=== PATIENT | female | born 1990 | race Caucasian/White ===

== ENCOUNTER 2023-05-17 19:53 | Emergency (ER) | payer OTHER, SELFPAY ==
[2023-05-17 20:06] VITALS: BP 151/97
[2023-05-17 20:20] LABS: % Basophils 0.2 % (0-2); % Immature Granulocytes 0.4 % (0-0.5); % Lymphocytes 12.7 % (20.5-51.1); % Monocytes 2.7 % (1.7-9.3); Absolute Immature Granulocytes 0.1 10^3/uL (0-0.05); Absolute Lymphocytes 1.8 10^3/uL (1.2-3.4); Absolute Monocytes 0.4 10^3/uL (0.1-0.6); Absolute Neutrophils 11.7 10^3/uL (1.4-6.5); Hematocrit 44.6 % (37.0-47.0); Hemoglobin 15.1 g/dL (12.0-16.0); Mean Corp Hgb Conc. 33.9 g/dL (33.0-37.0); Mean Corpuscular Hgb 27.5 pg (27.0-31.0); Mean Corpuscular Volume 81.2 fL (81.0-99.0); Mean Platelet Volume 9.6 fL (7.4-10.4); Nucleated Red Blood Cells % 0 %; Platelet Count 319 10^3/uL (130-400); Red Blood Cell Count 5.49 10^6/uL (4.20-5.40); Red Cell Dist. Width 12.8 % (11.5-14.5); White Blood Cell Count 13.9 10^3/uL (4.8-10.8)
[2023-05-17 20:39] LABS: ALT (SGPT) 26 U/L (0-35); AST (SGOT) 28 U/L (14-36); Albumin 4.8 g/dl (3.5-5.0); Alkaline Phosphatase 64 U/L (38-126); Blood Urea Nitrogen 13 mg/dl (7-17); Calcium 9.9 mg/dl (8.4-10.2); Carbon Dioxide 26 mmol/L (22-30); Chloride 105 mmol/L (98-107); Glucose 148 mg/dl (70-99); Potassium 4.4 mmol/L (3.5-5.1); Sodium 138 mmol/L (135-145); Total Bilirubin 0.5 mg/dl (0.2-1.3); eGFR > 60.00
[2023-05-17 20:44] LABS: Troponin I < 0.012 ng/ml
[2023-05-17 22:26] VITALS: BP 123/66
--- NOTE | 2023-05-17 22:59 | ED.GENMED ---
History of Present Illness
General
Chief Complaint: Chest Pain
Source: patient
Exam Limitations: none
Time Seen by Provider: 05/17/23 22:37
Nursing documentation reviewed up to this point in time: agreed with
Travel History
Have you had any contact with someone who has COVID-19?: No
Do you have any symptoms of coronavirus? Fever > 100 degrees, chills, cough, shortness of breath, sore throat, loss of taste or smell, muscle aches, or headache?: No
History of Present Illness
History of Present Illness:
This is a 32-year-old overweight female who has history of asthma, currently maintained on Singulair, Claritin, Nasonex and as needed albuterol. She complains of several day history of intermittent palpitations feeling that her heart is beating
rapidly accompanied with some sinus congestion, intermittent cough. She has not noticed a fever but symptoms worsened today with intermittent lightheadedness, dizziness and left upper chest pain radiating to left shoulder and left arm since late
afternoon. She admits to feeling anxious, somewhat panicked with no prior history of anxiety, panic disorder.
She denies risk of , last menstrual period normal and on time 1 week ago.
No recent travel other than [address] to and from [place] recently. She denies leg pain or swelling.
She is a non-smoker.
No close contacts with similar symptoms.
She did take a dose of prednisone earlier today, leftover from previous prescription she thought maybe her asthma was acting up.
Past History
Past History
ED Past Medical History: Asthma, Hypercholesterolemia, Psychiatric (Depression) and Other (Morbid obesity, UTI, seasonal allergies)
ED Past Surgical History: Other ([place] teeth)
Social History
Tobacco: Non-smoker
Alcohol: Occasional
Personal:
Living: with family
Employment: Employed
Family History
Family History: Other (Noncontributory)
Phy Exam
Physical Exam
Physical Exam:
GENERAL: 32-year-old woman, overweight, appears her stated age, bright and alert, very minimally apprehensive but easily communicative. Very mild resting tachypnea is noted, moderate nasal congestion is noted. Able to speak in full sentences.
is accompanying. Borderline low-grade fever noted in triage at 99.3, currently afebrile upon recheck.
EYE: . anicteric
NECK: Supple, nontender, no meningismus, no significant adenopathy. No JVD.
ENT: posterior pharynx is has no injection, mild clear postnasal drip, oral mucosa is moist. TMs without injection but clear middle ear effusion noted bilaterally, nares have moderately boggy pale blue turbinates with mild clear rhinorrhea.
CARDIAC: Regular rhythm, mildly tachycardic. no murmur.
LUNGS: Very minimal resting tachypnea, scattered end expiratory wheezing with forced expiration only otherwise clear to auscultation.
ABDOMEN: Rotund, soft, nondistended, without focal tenderness, no r/g, no cvat. normoactive BS.
NEUROLOGICAL: Alert and oriented x3, no focal neuro deficits.
SKIN: Warm and dry, normal color, skin intact. No rash.
MUSCULOSKELETAL: No C/C/E. peripheral pulses are full and equal b/l. No palpable tenderness.
PSYCH: Minimally apprehensive, cooperative, easily communicative.
Scores
Heart Score for Chest Pain Patients
STEMI patient?: No
History: Slightly or Non-Suspicious
ECG: Normal
Age: </= 45 years
Risk Factors: No Risk Factors
Troponin: </= Normal Limit
Heart Score for Chest Pain Patients: 0
Heart Score Risk: 2.5% MACE over next 6 weeks
PE Wells Score
Symptoms of DVT: No
No alternative diagnosis better explains the illness: No
Tachycardia with pulse > 100: Yes
Immobilization (>=3 days) or surgery within previous 4 weeks: No
Prior history of DVT or pulmonary embolism: No
Presence of hemoptysis: No
Presence of malignancy: No
Pulmonary Embolism Risk Score: 1.5
Probability of PE: Pt is low risk
PERC Rule Criteria
Age <50 years: Yes
HR <100 bpm: No
Room air oxygen sat >94%: Yes
History of DVT or PE: No
Recent trauma or surgery: No
Hemoptysis: No
Exogenous estrogen: No
Clinical signs suggestive of DVT: No
: No
Considered low risk for PE: Yes
PERC Score: 1
PE can be excluded by PERC: No
Course
Orders/Labs/Results
Orders:
Orders
05/17/23 19:55
EKG [Electrocardiogram (*1)] Urgent
Reason for Study: Tachycardia
EKG- Treatment ONCE
05/17/23 20:15
Complete Blood Count/With Diff Urgent
Comprehensive Metabolic Panel Urgent
HCG, Serum Qualitative Screen Urgent
Comment: ADD ON
TSH Reflex To Free T4 Urgent
Comment: ADD ON
Troponin I Urgent
05/17/23 22:57
Add On- LAB Urgent
Tests Added?: qual serum HCG; TSH reflex to free T-4
05/17/23 22:58
0.9% Sodium Chloride 1000 ml [Nss] 1,000 ml IV BOLUS
Ipratropium/Albuterol Sulfate [Duoneb] 3 ml INH R NOW STA
05/17/23 23:43
D-Dimer Urgent
Urinalysis Reflex To Culture Urgent
Date Specimen was Collected: 05/17/23
Time Specimen was Collected: 23:28
Urine Microscopic Reflex Cult Urgent
Urine Culture Urgent
MARISELA Source: U
Specimen Description:
Date Specimen was Collected: 05/17/23
Time Specimen was Collected: 23:28
05/18/23 00:22
CR Chest - 2 Views Urgent
Comment:
Reason For Exam: cough, SOB, left upper CP
Abnormal Lab Results
05/17/23 05/17/23
20:15 23:43
WBC 13.9 H 10^3/uL
(4.8-10.8)
RBC 5.49 H 10^6/uL
(4.20-5.40)
Abs Immat Gran (auto) 0.1 H 10^3/uL
(0-0.05)
Absolute Neuts (auto) 11.7 H 10^3/uL
(1.4-6.5)
Neutrophils % 84.0 H %
(42.2-75.2)
Lymphocytes % 12.7 L %
(20.5-51.1)
Glucose 148 H mg/dl
(70-99)
Leukocyte Esterase Rfl 2+ A
(Negative)
Urine RBC 3-6 A /HPF
(0-2)
Urine WBC (Reflex) 30-40 A /HPF
(0-5)
Urine Bacteria (Reflex) Many A
(Negative)
05/17/23 20:15
05/17/23 20:15
Vital Signs
Initial and Last Documented VS:
Initial Vital Signs
Temp Pulse Resp BP Pulse Ox
99.3 F 115 26 151/97 98
05/17/23 20:06 05/17/23 20:06 05/17/23 20:06 05/17/23 20:06 05/17/23 20:06
Last Documented Vital Signs
Temp Pulse Resp BP Pulse Ox
98.4 F 114 21 138/86 93
05/18/23 01:19 05/18/23 00:15 05/18/23 00:15 05/18/23 00:00 05/18/23 01:30
MDM/Problems Addressed
Differential Diagnosis Includes:
Concern for exacerbation of asthma, seasonal allergy exacerbation, with sinus tachycardia, left upper chest pain, although no definitive risk factors for PE must consider this as an entity.
Other consideration is thyroid disorder, occult pneumonia.
Will trial DuoNeb nebulizer, IV fluids. Will check D-dimer and thyroid function.
ACS is less likely. EKG although shows sinus tachycardia is otherwise unremarkable. Troponin is negative.
Monitor shows normal sinus rhythm to sinus tachycardia.
Patient also notes intermittent lower abdominal discomfort, abdomen is soft and nontender. No UTI symptoms but has had previous UTIs in the past thus will check urinalysis. Will also check hCG for completeness sake.
If D-dimer is negative will check chest x-ray; if positive, will check CT of the chest/PE study.
Labs show mildly elevated white blood cell count of 13.9, mildly elevated random glucose of 148. Patient did take a dose of prednisone earlier today which could certainly account for these findings. Patient reports no prior history of impaired
fasting glucose and previous random blood sugars have been essentially within normal limits.
Chronic conditions affecting care: Asthma and Other (Seasonal allergies)
*Radiology
Radiology exam reviewed: preliminary read by ED provider (Chest x-ray is unremarkable, clear lung gomez, normal heart size.)
*Pulse Oximetry
Patient hypoxic: no
*EKG
Interpreted by ED Provider?: Yes
Comparison EKG: no changes (Unchanged from previous October 2022 save her heart rate has increased from 77 to now 110)
Rate: tachycardiac
Rhythm: sinus
[place]: normal axis
Interval: normal interval
QRS Pattern: normal QRS
Ischemia: no ischemia
*Hot [employer]ter Interpretation
Rate: tachycardiac
Interpretation: abnormal
Rhythm: sinus (Normal sinus rhythm in the 90s to mild sinus tachycardia)
*Critical Care Note
Total Time (30-74mins, 75-104mins- exclusive of procedures): Not Applicable
Update Note
Update Note:
Patient feeling improved after nebulizer treatment and IV fluids. Sinus tachycardia has resolved.
Anxiety has resolved as well.
D-dimer is negative. TSH is normal.
Urinalysis is a contaminated specimen with greater than 30 squamous epithelial cells. It does show many bacteria, 30-40 WBCs but a contaminated specimen and as patient has not had her usual UTI symptoms we will hold off on antibiotic and await
urine culture.
Chest x-ray is unremarkable, clear lung gomez.
Patient was concerned for potentially aspirating a small piece of fingernail last week and has been feeling some irritation left lower throat/neck region. She was concern for possible 'aspiration' of this piece of nail. Lengthy discussion that if
she was to aspirate it would cause an immediate cough and most likely enter the right mainstem bronchus to the right lower lobe where she has not had irritation. The fact that she is felt some irritation anterior lower neck region likely local
irritation of her esophagus but she has had nothing to suggest esophageal obstruction nor perforation, swallowing well without difficulty nor pain.
History and exam most consistent with seasonal allergic rhinitis which I suspect is causing an exacerbation of asthma. Will treat with a tapering dose of prednisone and recommend she resume twice daily Symbicort. Continue loratadine, Nasonex as
well as Singulair.
She was concerned about anxiety and has been somewhat stressed recently. I suspect her current anxiety is exacerbated by current asthma exacerbation and recommend we get her asthma under control and otherwise follow-up with her PCP.
Return precautions discussed.
ED Attending Note
-
Portions of this chart may have been created with voice recognition software.� Occasional wrong word or��sound alike� substitutions may have occurred due to the inherent limitations of voice recognition software.
Discharge Plan
Departure
Patient Disposition: Home (Routine Discharge)
Date of Disposition: 05/18/23
Time of Disposition: 01:56
Patient with high blood pressure during this ER visit?: No
Condition: Good
Discharge Problem:
Acute asthma exacerbation, Allergic rhinitis, Acute serous otitis media of both ears, Nonspecific chest pain, Anxiety
Instructions: Seasonal Allergies (DC), Asthma, Adult (DC), Anxiety, Adult (DC), Chest Pain PCP Follow Up
Prescriptions:
New
budesonide-formoterol [Symbicort] 160-4.5 mcg/actuation HFA aerosol inhaler
1 inh inhalation BID Qty: 10.2 0RF
prednisone 10 mg Tablet
See Rx Instructions .ROUTE .COMPLEX Qty: 30 0RF
Rx Instructions:
Take By Mouth:
40 mg daily x3 days, 30 mg daily x3 days,
20 mg daily x3 days, 10 mg daily x3 days.
No Action
mometasone [Nasonex] 17 GM spray,non-aerosol
17 gm NS DAILY
budesonide-formoterol [Symbicort] 1 PUFF HFA aerosol inhaler
2 puff inhalation R BID
clindamycin HCl 150 MG capsule
150 mg PO QID Qty: 24 0RF
montelukast 10 MG tablet
10 mg PO HS
azelastine [Optivar] 0.05 % drops
1 drp BOTH EYES PRN PRN (Reason: allergy eyes)
loratadine 10 MG tablet
10 mg PO DAILY Qty: 14 0RF
famotidine 20 MG tablet
20 mg PO BID Qty: 30 0RF
Referrals:
Michelle Paris PA-C [Family Provider] - Call in 1-3 days for appt
Interventions
Interventions:
*Risk Screen - Suicide Last Done: 05/17/23 20:05
*General Assessment Last Done: 05/17/23 20:03
*Neglect/Abuse Screening Last Done: 05/17/23 20:03
ED- Fall Risk Assessment Last Done: 05/17/23 22:29
*ED COVID-19 Vaccine History Last Done: 05/17/23 22:08
ED- Cardiac Assessment Last Done: 05/18/23 00:21
[2023-05-17 23:00] VITALS: BP 135/80
[2023-05-17 23:29] LABS: HCG, Serum Qualitative Screen Negative
[2023-05-17] MEDS: NSS 1000 IV (23:49)
[2023-05-17] MEDS: DUONEB 3 ML INH (23:49)
[2023-05-17 23:57] LABS: Urine Albumin Negative (Neg - Trace); Urine Bilirubin Negative (Negative); Urine Character Slightly Cloudy (Clear); Urine Color Yellow; Urine Glucose Negative (Negative); Urine Ketone Negative (Negative); Urine Leukocyte 2+ (Negative); Urine Nitrite Negative (Negative); Urine Occult Blood Negative (Negative); Urine Specific Gravity 1.015 (<1.030); Urine Urobilinogen Negative (Neg - 1+)
[2023-05-18] VITALS: BP 138/86
[2023-05-18 00:16] LABS: TSH Reflex To Free T4 0.82 uIU/ml (0.47-4.68)
[2023-05-18 00:18] LABS: D-Dimer < 0.27 ug/mlFEU (0.00-0.50)
[2023-05-18 01:21] LABS: Urine Bacteria Many (Negative); Urine Calcium Oxalate Crystals Seen; Urine Squamous Cell >30 /LPF (Few); Urine White Cell 30-40 /HPF (0-5)
== END 2023-05-18 02:15 | disposition home or self-care (01) ==
LOC: EMR 19:53
PROVIDERS: Emergency Medicine; EMERGENCY PHYSICIAN Emergency Medicine; FAMILY PHYSICIAN Physician Assistant Medical
DX: J45.901 Unspecified asthma with (acute) exacerbation (principal); H65.03 Acute serous otitis media, bilateral; R07.9 Chest pain, unspecified; F41.9 Anxiety disorder, unspecified
CPT/HCPCS: 99285; 96360; 94640; 71046; 80053; 81003; 81015; 84443; 84484; 84703; 85025; 85379; 87086; 93005

== ENCOUNTER 2023-05-21 09:03 | Emergency (ER) | payer OTHER, SELFPAY ==
[2023-05-21] VITALS (7 sets, daily range): BP systolic 132–146; BP diastolic 71–94; BMI 41.8
--- NOTE | 2023-05-21 09:28 | ED.GENMED ---
History of Present Illness
General
Chief Complaint: Abdominal Pain
Source: patient
Exam Limitations: none
Time Seen by Provider: 05/21/23 09:18
Travel History
Have you had any contact with someone who has COVID-19?: No
Do you have any symptoms of coronavirus? Fever > 100 degrees, chills, cough, shortness of breath, sore throat, loss of taste or smell, muscle aches, or headache?: No
History of Present Illness
History of Present Illness:
See MDM
Past History
Past History
ED Past Medical History: Asthma, Hypercholesterolemia, Psychiatric (Depression) and Other (Morbid obesity, UTI, seasonal allergies)
ED Past Surgical History: Other ([place] teeth)
Social History
Tobacco: Non-smoker
Alcohol: Occasional
Personal:
Living: with family
Employment: Employed
Family History
Family History: Other (Noncontributory)
Phy Exam
Physical Exam
Physical Exam:
See MDM
Course
Orders/Labs/Results
Orders:
Orders
05/21/23 09:26
CT Abd/pelvis W Iv Cont Urgent
Comment:
Reason For Exam: Suprapubic and RLQ pain. Recent UTI
0.9% Sodium Chloride 1000 ml [Nss] 1,000 ml IV BOLUS
Ketorolac [Toradol] 30 mg IV NOW STA
Ondansetron Injectable [Zofran] 4 mg IV NOW STA
05/21/23 09:58
Complete Blood Count/With Diff Urgent
Comprehensive Metabolic Panel Urgent
HCG, Serum Qualitative Screen Urgent
Comment: ADD ON
Lipase Urgent
05/21/23 10:02
Urinalysis Reflex To Culture Urgent
Date Specimen was Collected: 05/21/23
Time Specimen was Collected: 09:59
Urine Microscopic Reflex Cult Urgent
Urine Culture Urgent
MARISELA Source: U
Specimen Description:
Date Specimen was Collected: 05/21/23
Time Specimen was Collected: 09:59
05/21/23 10:32
Add On- LAB Urgent
Tests Added?: Beta HCG qualitative
05/21/23 11:45
Electrocardiogram (*1) Urgent
Reason for Study: Chest Pain
EKG- Treatment ONCE
Lorazepam [Ativan] 0.5 mg IV NOW STA
Abnormal Lab Results
05/21/23 05/21/23
09:58 10:02
MCV 80.1 L fL
(81.0-99.0)
Leukocyte Esterase Rfl 2+ A
(Negative)
Urine RBC 3-6 A /HPF
(0-2)
Urine Bacteria (Reflex) Few A
(Negative)
05/21/23 09:58
05/21/23 09:58
Vital Signs
Initial and Last Documented VS:
Initial Vital Signs
Temp Pulse Resp BP Pulse Ox
98.1 F 83 18 142/94 98
05/21/23 09:06 05/21/23 09:06 05/21/23 09:06 05/21/23 09:06 05/21/23 09:06
Last Documented Vital Signs
Temp Pulse Resp BP Pulse Ox
98.7 F 94 18 146/81 99
05/21/23 11:45 05/21/23 11:45 05/21/23 11:45 05/21/23 11:45 05/21/23 11:45
MDM/Problems Addressed
Differential Diagnosis Includes:
HPI and MDM Narrative:
32-year-old female presenting with increased abdominal bloating and increased urinary frequency. Patient states she was recently placed on doxycycline for UTI. Patient is concerned something else may be going on. She was recently seen in the
emergency department for asthma exacerbation. She stopped her steroids a few days ago. Patient is starting to feel anxious and is unsure if this is anxiety related or something worse.
Given her issues, will repeat urinalysis. Given the abdominal tenderness, will obtain CT
Physical exam
General: Well appearing and non-toxic
HEENT: protecting airway. Dry mucous membranes
Neck: appears supple
CV: No evidence of cyanosis
Resp: No accessory muscle use
Abd: Non-distended. Suprapubic and right lower quadrant tenderness
Extremities: No deformities
Neuro: alert
Psych: Normal affect
Skin: Intact
Problems Addressed including Acute and Chronic Conditions affecting care:
1. Abdominal pain
Acuity: acute
Prognosis: stable
Details: Given location of pain, will obtain CT. Patient given IV Toradol
2. Dehydration
Acuity: acute
Prognosis: stable
Details: Will give IV fluid
CT negative for acute pathology. Discussed follow-up with PCP
Updates
Differential Diagnosis (but not limited to): Appendicitis, cystitis, ovarian cyst
Testing considered: Pelvic ultrasound
Drug therapy (if applicable): OTC meds, please see d/c instruction regarding Rx drugs
Amount and/or Complexity of Data Reviewed
Clinical info obtained from: Patient
External data reviewed: Recent evaluation for asthma exacerbation. Patient states she is no longer short of breath or wheezing
Labs I independently reviewed (but not limited to): White blood cell count normal
Radiology: The CT scan was personally and independently reviewed. In addition, official CT report reviewed.
Pulse Ox: not hypoxic
EKG independently reviewed: Sinus rhythm, normal axis, no STEMI
[place]: N/A
Critical Care: N/A
Risk of Complication:
Social Determinants of health: Good social support
Discussed with other providers: N/A
Escalation of Care includes Admit/Obs: After being observed in the Emergency Department, pt stable for discharge.
Occasional wrong word or 'sound a like' substitutions may have occurred due to the inherent limitations of voice recognition software. Read the chart carefully and recognize, using context, where substitutions have occurred.
*Critical Care Note
Total Time (30-74mins, 75-104mins- exclusive of procedures): Not Applicable
ED Attending Note
-
Portions of this chart may have been created with voice recognition software.� Occasional wrong word or��sound alike� substitutions may have occurred due to the inherent limitations of voice recognition software.
Discharge Plan
Departure
Patient Disposition: Home (Routine Discharge)
Date of Disposition: 05/21/23
Time of Disposition: 13:29
Patient with high blood pressure during this ER visit?: Yes
Discharge Problem:
Abdominal pain
Instructions: Abdominal Pain, BLOOD PRESSURE
Prescriptions:
No Action
mometasone [Nasonex] 17 GM spray,non-aerosol
17 gm NS DAILY
budesonide-formoterol [Symbicort] 1 PUFF HFA aerosol inhaler
2 puff inhalation R BID
clindamycin HCl 150 MG capsule
150 mg PO QID Qty: 24 0RF
montelukast 10 MG tablet
10 mg PO HS
azelastine [Optivar] 0.05 % drops
1 drp BOTH EYES PRN PRN (Reason: allergy eyes)
loratadine 10 MG tablet
10 mg PO DAILY Qty: 14 0RF
famotidine 20 MG tablet
20 mg PO BID Qty: 30 0RF
budesonide-formoterol [Symbicort] 160-4.5 mcg/actuation HFA aerosol inhaler
1 inh inhalation BID Qty: 10.2 0RF
prednisone 10 mg Tablet
See Rx Instructions .ROUTE .COMPLEX Qty: 30 0RF
Rx Instructions:
Take By Mouth:
40 mg daily x3 days, 30 mg daily x3 days,
20 mg daily x3 days, 10 mg daily x3 days.
Referrals:
Hansbarger,Michelle A., PA-C [Family Provider] -
Activity Restrictions/Additional Instructions:
Please return for any worsening symptoms.
You may return at any time if you have further concerns.
Please follow up with your doctor at the first available appointment, preferably this week.
Thank you for choosing [facility].
Interventions
Interventions:
*Risk Screen - Suicide Last Done: 05/21/23 09:48
*General Assessment Last Done: 05/21/23 09:06
*Neglect/Abuse Screening Last Done: 05/21/23 09:48
ED- Fall Risk Assessment Last Done: 05/21/23 09:49
*ED COVID-19 Vaccine History Last Done: 05/21/23 09:06
QF-Zlnssd-Bfankagrlo Assessment Last Done: 05/21/23 09:49
[2023-05-21] MEDS: NSS 1000 IV (09:42)
[2023-05-21] MEDS: TORADOL 30 MG IV (09:44)
[2023-05-21] MEDS: ZOFRAN 4 MG IV (09:44)
[2023-05-21 10:11] LABS: % Basophils 0.5 % (0-2); % Eosinophils 1.2 % (0-6); % Immature Granulocytes 0.4 % (0-0.5); % Lymphocytes 32.9 % (20.5-51.1); % Monocytes 6.5 % (1.7-9.3); % Neutrophils 58.5 % (42.2-75.2); Absolute Eosinophils 0.1 10^3/uL (0-0.7); Absolute Lymphocytes 2.4 10^3/uL (1.2-3.4); Absolute Monocytes 0.5 10^3/uL (0.1-0.6); Absolute Neutrophils 4.3 10^3/uL (1.4-6.5); Hematocrit 40.3 % (37.0-47.0); Hemoglobin 13.9 g/dL (12.0-16.0); Mean Corp Hgb Conc. 34.5 g/dL (33.0-37.0); Mean Corpuscular Hgb 27.6 pg (27.0-31.0); Mean Corpuscular Volume 80.1 fL (81.0-99.0); Mean Platelet Volume 9.9 fL (7.4-10.4); Nucleated Red Blood Cells % 0 %; Platelet Count 250 10^3/uL (130-400); Red Blood Cell Count 5.03 10^6/uL (4.20-5.40); Red Cell Dist. Width 12.9 % (11.5-14.5); White Blood Cell Count 7.4 10^3/uL (4.8-10.8)
[2023-05-21 10:13] LABS: Urine Albumin Negative (Neg - Trace); Urine Bilirubin Negative (Negative); Urine Character Slightly Cloudy (Clear); Urine Color Yellow; Urine Glucose Negative (Negative); Urine Ketone Negative (Negative); Urine Leukocyte 2+ (Negative); Urine Nitrite Negative (Negative); Urine Occult Blood Negative (Negative); Urine Urobilinogen Negative (Neg - 1+)
[2023-05-21 10:24] LABS: ALT (SGPT) 21 U/L (0-35); AST (SGOT) 22 U/L (14-36); Albumin 4.1 g/dl (3.5-5.0); Alkaline Phosphatase 52 U/L (38-126); Blood Urea Nitrogen 12 mg/dl (7-17); Calcium 9.1 mg/dl (8.4-10.2); Carbon Dioxide 26 mmol/L (22-30); Chloride 107 mmol/L (98-107); Estimated Creatinine Clearance > 125 ml/min; Glucose 93 mg/dl (70-99); Lipase 79 U/L (23-300); Potassium 3.9 mmol/L (3.5-5.1); Sodium 137 mmol/L (135-145); Total Bilirubin 0.8 mg/dl (0.2-1.3); Total Protein 6.9 g/dl (6.3-8.2); eGFR > 60.00
[2023-05-21 10:26] LABS: Urine Bacteria Few (Negative)
[2023-05-21 11:02] LABS: HCG, Serum Qualitative Screen Negative
[2023-05-21] MEDS: ATIVAN 0.5 MG IV (11:59)
== END 2023-05-21 14:25 | disposition home or self-care (01) ==
LOC: EMR 09:03
PROVIDERS: EMERGENCY PHYSICIAN Student in an Organized Health Care Education/Training Program; FAMILY PHYSICIAN Physician Assistant Medical
DX: R10.9 Unspecified abdominal pain (principal); J45.901 Unspecified asthma with (acute) exacerbation; E78.00 Pure hypercholesterolemia, unspecified; F32.A Depression, unspecified; E66.01 Morbid (severe) obesity due to excess calories; Z87.440 Personal history of urinary (tract) infections
CPT/HCPCS: 99284; 96374; 96375; 96361; 74177; 80053; 81003; 81015; 83690; 84703; 85025; 87086; 93005; Q9967

== ENCOUNTER → 2023-07-20 14:35 | Outpatient (REF) | payer OTHER, SELFPAY | LOC: RAD 14:35 | PROVIDERS: ATTENDING PHYSICIAN Physician Assistant Medical | DX: S09.90XA Unspecified injury of head, initial encounter (principal) | CPT/HCPCS: 70450 ==

== ENCOUNTER → 2023-07-24 10:51 | Outpatient (REF) | payer OTHER, SELFPAY | LOC: HWRAD 10:51 | PROVIDERS: ATTENDING PHYSICIAN Nurse Practitioner; FAMILY PHYSICIAN Physician Assistant Medical | DX: N30.10 Interstitial cystitis (chronic) without hematuria (principal) | CPT/HCPCS: 76770; 76856 ==

== ENCOUNTER → 2023-08-04 11:04 | Outpatient (REF) | payer OTHER, SELFPAY | LOC: RCS 11:04 | PROVIDERS: ATTENDING PHYSICIAN Internal Medicine Cardiovascular Disease; FAMILY PHYSICIAN Physician Assistant Medical | DX: R00.2 Palpitations (principal); R00.0 Tachycardia, unspecified | CPT/HCPCS: 93225; 93226 ==

== ENCOUNTER → 2023-08-18 06:53 | Outpatient (REF) | payer OTHER, SELFPAY | LOC: HWRCS 06:53 | PROVIDERS: ATTENDING PHYSICIAN Internal Medicine Cardiovascular Disease; FAMILY PHYSICIAN Physician Assistant Medical | DX: R00.2 Palpitations (principal); R00.0 Tachycardia, unspecified | CPT/HCPCS: 93306 ==

== ENCOUNTER 2023-08-20 02:09 | Emergency (ER) | payer OTHER, SELFPAY ==
[2023-08-20 02:10] VITALS: BP 134/98
[2023-08-20 02:31] VITALS: BMI 39.6
[2023-08-20 02:48] LABS: % Basophils 0.6 % (0-2); % Eosinophils 5.8 % (0-6); % Immature Granulocytes 0.3 % (0-0.5); % Lymphocytes 30.5 % (20.5-51.1); % Monocytes 6.7 % (1.7-9.3); % Neutrophils 56.1 % (42.2-75.2); Absolute Basophils 0.1 10^3/uL (0-0.2); Absolute Eosinophils 0.5 10^3/uL (0-0.7); Absolute Lymphocytes 2.4 10^3/uL (1.2-3.4); Absolute Monocytes 0.5 10^3/uL (0.1-0.6); Absolute Neutrophils 4.4 10^3/uL (1.4-6.5); Hematocrit 43.1 % (37.0-47.0); Hemoglobin 14.6 g/dL (12.0-16.0); Mean Corp Hgb Conc. 33.9 g/dL (33.0-37.0); Mean Corpuscular Hgb 28.5 pg (27.0-31.0); Mean Corpuscular Volume 84.2 fL (81.0-99.0); Mean Platelet Volume 10.6 fL (7.4-10.4); Nucleated Red Blood Cells % 0 %; Platelet Count 236 10^3/uL (130-400); Red Blood Cell Count 5.12 10^6/uL (4.20-5.40); Red Cell Dist. Width 12.8 % (11.5-14.5); White Blood Cell Count 7.8 10^3/uL (4.8-10.8)
[2023-08-20 03:00] LABS: HCG, Serum Qualitative Screen Negative
[2023-08-20 03:03] LABS: ALT (SGPT) 19 U/L (0-35); AST (SGOT) 24 U/L (14-36); Albumin 4.4 g/dl (3.5-5.0); Alkaline Phosphatase 54 U/L (38-126); Blood Urea Nitrogen 14 mg/dl (7-17); C-Reactive Protein < 5.00 mg/L (0.0-10.00); Calcium 9.5 mg/dl (8.4-10.2); Carbon Dioxide 23 mmol/L (22-30); Chloride 106 mmol/L (98-107); Estimated Creatinine Clearance > 125 ml/min; Glucose 108 mg/dl (70-99); Potassium 4.1 mmol/L (3.5-5.1); Sodium 139 mmol/L (135-145); Total Bilirubin 0.4 mg/dl (0.2-1.3); Total Protein 7.1 g/dl (6.3-8.2); eGFR > 60.00
--- NOTE | 2023-08-20 03:54 | ED.GENMED ---
History of Present Illness
General
Chief Complaint: Abdominal Pain
Source: patient and family
Exam Limitations: none
Time Seen by Provider: 08/20/23 02:15
Travel History
Have you had any contact with someone who has COVID-19?: No
Do you have any symptoms of coronavirus? Fever > 100 degrees, chills, cough, shortness of breath, sore throat, loss of taste or smell, muscle aches, or headache?: No
History of Present Illness
History of Present Illness:
33-year-old female who presents with abdominal pain. Patient states she noticed that her bellybutton was red. She states she thought maybe was related to be in sweaty. She states that she got a little bit tingly and lightheaded. She tried to lay
down and again her skin felt like it was tingling and then noticed some pain in the right side of her abdomen. Patient states that it is out toward the right mid abdomen laterally. No nausea or vomiting. No fevers. No diarrhea. No constipation.
Past History
Past History
ED Past Medical History: Asthma, Hypercholesterolemia, Psychiatric (Depression) and Other (Morbid obesity, UTI, seasonal allergies)
ED Past Surgical History: Other ([place] teeth)
Social History
Tobacco: Non-smoker
Alcohol: Occasional
Personal:
Living: with family
Employment: Employed
Family History
Family History: Other (Noncontributory)
Phy Exam
Physical Exam
Physical Exam:
CONSTITUTIONAL Patient alert and oriented to person, place and time. Well-appearing. Vital signs reviewed.
HEAD atraumatic, normocephalic.
EYES eyelids normal to inspection, Extraocular muscles intact, Conjunctiva normal, Sclera normal.
NECK normal range of motion, Trachea midline, no jugular venous distention.
RESPIRATORY CHEST No respiratory distress noted, Chest expansion equal, Bilateral breath sounds clear.
CARDIOVASCULAR regular rate and rhythm, Heart sounds normal.
ABDOMEN McBurney's point nontender, very mild lateral mid abdominal tenderness, Bowel sounds normal. No distention. Very slight redness noted at the umbilicus. There is a ringlike lining of redness around the umbilicus where the skin meets when
sitting. No signs cellulitis. No hernia palpated
BACK normal inspection, no obvious deformities
UPPER EXTREMITY range of motion normal, Motor strength normal, no cyanosis, no edema.
LOWER EXTREMITY range of motion normal, Motor strength normal, no cyanosis, no edema.
NEURO Speech normal, No focal motor deficits, [place] coma scale 15, Memory normal, Cranial Nerves intact to screening exam.
SKIN skin warm, dry, and normal in color.
PSYCHIATRIC patient oriented to person place and time, Normal affect.
Course
Orders/Labs/Results
Orders:
Orders
08/20/23 02:30
Test Result ONCE
08/20/23 02:34
CRP [C-Reactive Protein] Urgent
Complete Blood Count/With Diff Urgent
Comprehensive Metabolic Panel Urgent
HCG, Serum Qualitative Screen Urgent
08/20/23 03:29
Urinalysis Reflex To Culture Urgent
Date Specimen was Collected: 08/20/23
Time Specimen was Collected: 03:28
Abnormal Lab Results
08/20/23
02:34
MPV 10.6 H fL
(7.4-10.4)
Glucose 108 H mg/dl
(70-99)
08/20/23 02:34
08/20/23 02:34
Vital Signs
Initial and Last Documented VS:
Initial Vital Signs
Temp Pulse Resp BP Pulse Ox
98.3 F 90 18 134/98 98
08/20/23 02:10 08/20/23 02:10 08/20/23 02:10 08/20/23 02:10 08/20/23 02:10
Last Documented Vital Signs
Temp Pulse Resp BP Pulse Ox
98.3 F 90 18 134/98 98
08/20/23 02:10 08/20/23 02:10 08/20/23 02:10 08/20/23 02:10 08/20/23 02:10
MDM/Problems Addressed
MDM/Problems Addressed:
Abdominal pain
*Pulse Oximetry
Patient hypoxic: no
*Critical Care Note
Total Time (30-74mins, 75-104mins- exclusive of procedures): Not Applicable
Data Reviewed
Review of Other/Old Records Reveals: Radiology Studies (Patient has had several previous CT scans of the abdomen)
Source: patient
Further Testing Considered But Not Given:
CT abdomen but white count and CRP negative. Exam benign
Patient Management
Escalation/DeEscalation of care consider admission/obs:
Patient appears quite well. Abdomen is benign McBurney's point nontender. Given the white count and CRP being normal I do not suspect infectious process. Okay for discharge. Her redness at her umbilicus is likely due to sweat/heat as it clearly
is where the skin touches. No signs of cellulitis. Recommended keeping it clean and dry. Return warnings and follow-up recommended
ED Attending Note
-
Portions of this chart may have been created with voice recognition software.� Occasional wrong word or��sound alike� substitutions may have occurred due to the inherent limitations of voice recognition software.
Discharge Plan
Departure
Patient Disposition: Home (Routine Discharge)
Date of Disposition: 08/20/23
Time of Disposition: 03:58
Patient with high blood pressure during this ER visit?: Yes
Discharge Problem:
Abdominal pain
Instructions: Abdominal Pain, BLOOD PRESSURE
Prescriptions:
No Action
mometasone [Nasonex] 17 GM spray,non-aerosol
17 gm NS DAILY
budesonide-formoterol [Symbicort] 1 PUFF HFA aerosol inhaler
2 puff inhalation R BID
montelukast 10 MG tablet
10 mg PO DAILY
azelastine [Optivar] 0.05 % drops
1 drp BOTH EYES PRN PRN (Reason: allergy eyes)
loratadine 10 MG tablet
10 mg PO DAILY Qty: 14 0RF
budesonide-formoterol [Symbicort] 160-4.5 mcg/actuation HFA aerosol inhaler
1 inh inhalation BID Qty: 10.2 0RF
alprazolam [Xanax] 0.5 mg Tablet
0.5 mg PO HS PRN (Reason: anxiety )
duloxetine [Cymbalta] 20 mg Capsule,Delayed Release(Dr/Ec)
20 mg PO DAILY
Referrals:
UNKNOWN - PT DOES,NOT KNOW [Family Provider] -
Activity Restrictions/Additional Instructions:
Return immediately for fevers, vomiting, worsening pain or any other concerns. Please see your doctor in the next 2 to 3 days for follow-up and reevaluation.
Interventions
Interventions:
*Risk Screen - Suicide Last Done: 08/20/23 02:32
*General Assessment Last Done: 08/20/23 02:32
*Neglect/Abuse Screening Last Done: 08/20/23 02:32
ED- Fall Risk Assessment Last Done: 08/20/23 02:42
*ED COVID-19 Vaccine History Last Done: 08/20/23 02:32
YA-Dwxiek-Szvdyhzymi Assessment Last Done: 08/20/23 02:42
Discharge Date and Time
Print Language: TONGAN
[2023-08-20 04:00] LABS: Urine Albumin Negative (Neg - Trace); Urine Bilirubin Negative (Negative); Urine Character Clear (Clear); Urine Color Yellow; Urine Glucose Negative (Negative); Urine Ketone 2+ (Negative); Urine Leukocyte 1+ (Negative); Urine Nitrite Negative (Negative); Urine Occult Blood 4+ (Negative); Urine Specific Gravity 1.015 (<1.030); Urine Urobilinogen Negative (Neg - 1+)
[2023-08-20 04:10] LABS: Urine Squamous Cell 16-20 /LPF (Few)
[2023-08-20 04:11] LABS: Urine Bacteria Few (Negative); Urine White Cell 26-30 /HPF (0-5)
[2023-08-20 04:12] LABS: Urine Red Blood Cell 0-2 /HPF (0-2)
[2023-08-20 04:28] VITALS: BP 135/87
== END 2023-08-20 04:34 | disposition home or self-care (01) ==
LOC: EMR 02:09
PROVIDERS: EMERGENCY PHYSICIAN Emergency Medicine
DX: R10.9 Unspecified abdominal pain (principal); E66.01 Morbid (severe) obesity due to excess calories; E78.00 Pure hypercholesterolemia, unspecified; F32.A Depression, unspecified; J45.909 Unspecified asthma, uncomplicated; Z87.440 Personal history of urinary (tract) infections
CPT/HCPCS: 99283; 80053; 81003; 81015; 84703; 85025; 86140; 87086

== ENCOUNTER 2023-09-04 10:09 | Emergency (ER) | payer OTHER, SELFPAY ==
[2023-09-04 10:35] VITALS: BP 143/74
[2023-09-04 11:05] VITALS: BMI 39.3
--- NOTE | 2023-09-04 11:05 | ED.GENMED ---
History of Present Illness
General
Chief Complaint: Eye Problems
Source: patient
Exam Limitations: none
Time Seen by Provider: 09/04/23 11:03
Nursing documentation reviewed up to this point in time: agreed with
History of Present Illness
History of Present Illness:
This is a 33 y/o female with a past medical history of asthma, depression, seasonal allergies presenting emergency department today with concerns of left eye papilledema. Patient states that she had her first tumblers supervisor exam today and when they
noted papilledema on exam. Patient was sent in by Dr. Hall her tumblers supervisor. Patient sees an tumblers supervisor because a few months ago back in April, she was scratched in the left eye by her dog. Patient states that she was fine so she did
not seek medical attention but then a few weeks later, she started experience blurry vision in her left eye so that is when she ultimately was able to get into see tumblers supervisor today. Patient denies any eye pain, any drainage from the eye.
Patient states that she has also had a lot of intermittent headaches recently but she attributes this to her being on and off antidepressant medications. Patient also notes she had a 20 pound weight loss which she attributes to being on Lexapro but
she is no longer on this medication. Patient denies any fevers or chills, any numbness or tingling, any one-sided weakness, any eye pain. Patient denies any history of hypertension or diabetes.
Past History
Past History
ED Past Medical History: Asthma, Hypercholesterolemia, Psychiatric (Depression) and Other (Morbid obesity, UTI, seasonal allergies)
ED Past Surgical History: Other ([place] teeth)
Social History
Tobacco: Non-smoker
Alcohol: Occasional
Personal:
Living: with family
Employment: Employed
Family History
Family History: Other (Noncontributory)
Review of Systems
Review of Systems
All Other Systems: ROS reviewed and negative except as documented in HPI and ROS
Phy Exam
Physical Exam
Physical Exam:
General: Patient is well appearing and in no acute distress; non-toxic
Skin: Warm and dry, no rashes or lesions
Head: Normocephalic, atraumatic
Eyes: Bilateral mydriasis noted from pupillary dilation from this morning's outpatient exam. Sclera non-icteric. EOMs intact. Peripheral visual gomez intact bilaterally. Left sided intraocular pressure 11. No conjunctival erythema or drainage
bilaterally. No proptosis. No CRISTEL. On my funduscopic exam, I was not able to appreciate papilledema.
Cardiac: Regular rate and rhythm, no murmurs
Peripheral Vascular: No lower extremity swelling or edema.
Pulm: Normal respiratory effort, no wheezes, rales, or rhonchi
Musculoskeletal: 5/5 strength in bilateral upper and lower extremities.
Neuro: CN II-XII intact, no focal neurologic deficits.
Psychiatric: Appropriate mood and affect.
Course
Orders/Labs/Results
Orders:
Orders
09/04/23 11:13
Purified Water Eye Wash [Dacriose Eye Wash Solution] 120 ml .ROUTE .STK-MED ONE
Tetracaine HCl [Tetracaine 0.5% Ophthalmic Solution] 1 drop .ROUTE .STK-MED ONE
09/04/23 12:10
CT Angio Head W/Wo Iv Contrast [CT Head Angio W/wo Iv Contrast] Urgent
Comment:
Reason For Exam: left sided papilladema, blurry vision, headache
09/04/23 12:20
Test Result ONCE
09/04/23 12:52
, Urine Qualitative Screen [HCG, Urine Qualitative Screen] Urgent
Date Specimen was Collected: 09/04/23
Time Specimen was Collected: 12:33
09/04/23 15:38
CRP [C-Reactive Protein] Urgent
Complete Blood Count/With Diff Urgent
Comprehensive Metabolic Panel Urgent
ESR [Erythrocyte Sed Rate] Urgent
Abnormal Lab Results
09/04/23
15:38
Glucose 102 H mg/dl
(70-99)
09/04/23 15:38
09/04/23 15:38
Vital Signs
Initial and Last Documented VS:
Initial Vital Signs
Temp Pulse Resp BP Pulse Ox
98.5 F 70 16 143/74 98
09/04/23 10:35 09/04/23 10:35 09/04/23 10:35 09/04/23 10:35 09/04/23 10:35
Last Documented Vital Signs
Temp Pulse Resp BP Pulse Ox
98.5 F 69 14 136/88 99
09/04/23 10:35 09/04/23 15:21 09/04/23 15:21 09/04/23 15:21 09/04/23 15:21
MDM/Problems Addressed
Differential Diagnosis Includes:
ddx include pseudotumor cerebri, hydrocephalus, intracranial mass, malignant hypertension
MDM/Problems Addressed:
Papilledema:
This is a 33 y/o female with a past medical history of asthma, depression, seasonal allergies presenting emergency department today with concerns of left eye papilledema. Patient went to see an tumblers supervisor today because she has been having
blurry vision in her left eye. Her tumblers supervisor Dr. Hall had noted that she had papilledema in the left eye. He requested that she report to emergency department for an MRI. On my exam, I am not able appreciate any papilledema, she has a
nonfocal neurologic exam, considering her blurry vision and finding during her exam today, CT was ordered with permission from Dr. Hall which was negative for intracranial hemorrhage, negative for edema or mass, normal. Relayed these findings
with her tumblers supervisor Dr. Trejo to requested certain lab work be obtained, we did obtain lab work which was within normal limits. Patient will follow-up with Dr. Hall on Monday for reassessment, patient stable for discharge.
Chronic conditions affecting care:
Asthma, seasonal allergies, depression
Acute Exacerbation and/or Progression of Chronic Illness:
Asthma, seasonal allergies, depression
*Pulse Oximetry
Patient hypoxic: no
*Critical Care Note
Total Time (30-74mins, 75-104mins- exclusive of procedures): Not Applicable
Data Reviewed
Review of Other/Old Records Reveals: Records (Reviewed ER physician documentation from 08/20/2023)
Source: patient
Further Testing Considered But Not Given:
Considered staining however patient does not have eye pain
Patient Management
Escalation/DeEscalation of care consider admission/obs:
Admit not indicated. I reviewed this case with my attending Dr. Lang.
ED Attending Note
-
Portions of this chart may have been created with voice recognition software.� Occasional wrong word or��sound alike� substitutions may have occurred due to the inherent limitations of voice recognition software.
Discharge Plan
Departure
Patient Disposition: Home (Routine Discharge)
Date of Disposition: 09/04/23
Time of Disposition: 16:16
Patient with high blood pressure during this ER visit?: Yes
Discharge Problem:
Papilledema of left eye
Instructions: BLOOD PRESSURE
Prescriptions:
No Action
mometasone [Nasonex] 17 GM spray,non-aerosol
17 gm NS DAILY
budesonide-formoterol [Symbicort] 1 PUFF HFA aerosol inhaler
2 puff inhalation R BID
montelukast 10 MG tablet
10 mg PO DAILY
azelastine [Optivar] 0.05 % drops
1 drp BOTH EYES PRN PRN (Reason: allergy eyes)
loratadine 10 MG tablet
10 mg PO DAILY Qty: 14 0RF
budesonide-formoterol [Symbicort] 160-4.5 mcg/actuation HFA aerosol inhaler
1 inh inhalation BID Qty: 10.2 0RF
alprazolam [Xanax] 0.5 mg Tablet
0.5 mg PO HS PRN (Reason: anxiety )
duloxetine [Cymbalta] 20 mg Capsule,Delayed Release(Dr/Ec)
20 mg PO DAILY
Referrals:
Michelle Paris PA-C [Family Provider] -
Activity Restrictions/Additional Instructions:
Dr. Hall states that he will see you next Monday for a follow-up appointment.
Your CT scan was normal today.
Your lab work is within normal limits.
Please return emergency department should you experience intractable headache, intractable vomiting, dizziness, lightheadedness, visual loss, eye pain, chest pain, shortness of breath, or any other signs or symptoms concerning to you.
Interventions
Interventions:
*Risk Screen - Suicide Last Done: 09/04/23 12:45
*General Assessment Last Done: 09/04/23 12:45
*Neglect/Abuse Screening Last Done: 09/04/23 12:45
ED- Fall Risk Assessment Last Done: 09/04/23 16:16
*ED COVID-19 Vaccine History Last Done: 09/04/23 10:35
*Nursing Disposition Last Done: 09/04/23 16:16
Discharge Date and Time
Discharge Date/Time: 09/04/23 16:22
Print Language: FAROESE
[2023-09-04 13:18] LABS: HCG, Urine Qualitative Screen Negative
[2023-09-04 15:21] VITALS: BP 136/88
[2023-09-04 15:49] LABS: % Basophils 0.6 % (0-2); % Eosinophils 5.2 % (0-6); % Immature Granulocytes 0.3 % (0-0.5); % Lymphocytes 23.7 % (20.5-51.1); % Monocytes 7.3 % (1.7-9.3); % Neutrophils 62.9 % (42.2-75.2); Absolute Basophils 0.1 10^3/uL (0-0.2); Absolute Eosinophils 0.4 10^3/uL (0-0.7); Absolute Lymphocytes 1.9 10^3/uL (1.2-3.4); Absolute Monocytes 0.6 10^3/uL (0.1-0.6); Absolute Neutrophils 4.9 10^3/uL (1.4-6.5); Hematocrit 44.3 % (37.0-47.0); Hemoglobin 14.6 g/dL (12.0-16.0); Mean Corpuscular Hgb 28.1 pg (27.0-31.0); Mean Corpuscular Volume 85.2 fL (81.0-99.0); Mean Platelet Volume 10.4 fL (7.4-10.4); Nucleated Red Blood Cells % 0 %; Platelet Count 266 10^3/uL (130-400); Red Cell Dist. Width 12.9 % (11.5-14.5); White Blood Cell Count 7.8 10^3/uL (4.8-10.8)
[2023-09-04 15:58] LABS: Erythrocyte Sed Rate 7 mm/hour (0-20)
[2023-09-04 16:03] LABS: ALT (SGPT) 19 U/L (0-35); AST (SGOT) 24 U/L (14-36); Albumin 4.3 g/dl (3.5-5.0); Alkaline Phosphatase 50 U/L (38-126); Blood Urea Nitrogen 9 mg/dl (7-17); Calcium 9.8 mg/dl (8.4-10.2); Carbon Dioxide 28 mmol/L (22-30); Chloride 102 mmol/L (98-107); Estimated Creatinine Clearance > 125 ml/min; Glucose 102 mg/dl (70-99); Sodium 137 mmol/L (135-145); Total Bilirubin 0.6 mg/dl (0.2-1.3); Total Protein 6.9 g/dl (6.3-8.2); eGFR > 60.00
[2023-09-04 16:05] LABS: C-Reactive Protein < 5.00 mg/L (0.0-10.00)
== END 2023-09-04 16:22 | disposition home or self-care (01) ==
LOC: EMR 10:09
PROVIDERS: Physician Assistant; EMERGENCY PHYSICIAN Emergency Medicine; FAMILY PHYSICIAN Physician Assistant Medical
DX: H47.10 Unspecified papilledema (principal); R03.0 Elevated blood-pressure reading, without diagnosis of hypertension; J44.9 Chronic obstructive pulmonary disease, unspecified; F32.A Depression, unspecified
CPT/HCPCS: 99284; 70496; 80053; 81025; 85025; 85652; 86140; Q9967

== ENCOUNTER → 2023-11-06 18:42 | Outpatient (REF) | payer OTHER, SELFPAY | LOC: MRI 3T 18:42 | PROVIDERS: ATTENDING PHYSICIAN Ophthalmology; FAMILY PHYSICIAN Physician Assistant Medical | DX: H47.10 Unspecified papilledema (principal) | CPT/HCPCS: 70543; 70553; A9575 ==

== ENCOUNTER 2025-01-26 20:35 | Emergency (ER) | payer OTHER, SELFPAY ==
[2025-01-26 20:40] VITALS: BP 159/91
[2025-01-26 21:40] VITALS: BMI 40.5
[2025-01-26 21:47] VITALS: BP 139/78
[2025-01-26] MEDS: TORADOL 30 MG IM (21:51)
[2025-01-26 21:59] LABS: Hematocrit 39.7 % (37.0-47.0); Hemoglobin 12.8 g/dL (12.0-16.0); Mean Corp Hgb Conc. 32.2 g/dL (33.0-37.0); Mean Corpuscular Volume 84.5 fL (81.0-99.0); Nucleated Red Blood Cells % 0 %; Platelet Count 248 10^3/uL (130-400); Red Cell Dist. Width 12.7 % (11.5-14.5)
[2025-01-26 22:00] VITALS: BP 132/80
[2025-01-26 22:13] LABS: HCG, Serum Qualitative Screen Negative
[2025-01-26 22:18] LABS: Blood Urea Nitrogen 13 mg/dl (7-17); Calcium 9.4 mg/dl (8.4-10.2); Carbon Dioxide 30 mmol/L (22-30); Chloride 102 mmol/L (98-107); Estimated Creatinine Clearance > 125 ml/min; Glucose 106 mg/dl (70-99); Potassium 4.2 mmol/L (3.5-5.1); Sodium 134 mmol/L (135-145); eGFR > 60.00
[2025-01-26 23:00] VITALS: BP 125/85
--- NOTE | 2025-01-26 23:02 | ED.GENMED ---
History of Present Illness
General
Chief Complaint: Medication Reaction
Source: patient
Exam Limitations: none
Time Seen by Provider: 01/26/25 20:44
Nursing documentation reviewed up to this point in time: agreed with
History of Present Illness
History of Present Illness:
34-year-old female presented to the emergency department today with concerns of multiple symptoms after stopping depression medication desvenlafaxine. Since then she has noticed fullness of her face and neck. Denies any objective findings.
Past History
Past History
ED Past Medical History: Asthma, Hypercholesterolemia, Psychiatric (Depression) and Other (Morbid obesity, UTI, seasonal allergies)
ED Past Surgical History: Other ([place] teeth)
Social History
Tobacco: Non-smoker
Alcohol: Occasional
Personal:
Living: with family
Employment: Employed
Family History
Family History: Other (Noncontributory)
Review of Systems
Review of Systems
Allergies reviewed?: Yes
All Other Systems: ROS reviewed and negative except as documented in HPI and ROS
Phy Exam
Physical Exam
Physical Exam:
GENERAL: Alert , in no apparent distress
EYE: pupils equal and reactive
NECK: Supple, no significant adenopathy.
ENT: o/p clr, mmm.
CARDIAC: Regular rate and rhythm .
LUNGS: Clear breath sounds bilaterally, no acute respiratory distress, no wheezes/rales/rhonchi
ABDOMEN: Soft, without focal tenderness, no r/g, no cvat
NEUROLOGICAL: Alert and oriented, no focal neuro deficits
SKIN: Warm and dry, skin intact.
MUSCULOSKELETAL: No edema, well perfused.
PSYCH: Normal and appropriate interaction.
Course
Orders/Labs/Results
Orders:
Orders
01/26/25 21:03
EKG [Electrocardiogram (*1)] Urgent
Reason for Study: Chest Pain
EKG- Treatment ONCE
Test Result ONCE
01/26/25 21:19
Ketorolac [Toradol] 30 mg IM NOW STA
01/26/25 21:49
BMP [Basic Metabolic Panel] Urgent
Beta Hcg Serum Qualitative Screen [HCG, Serum Qualitative Screen] Urgent
CBC/With Diff [Complete Blood Count/With Diff] Urgent
Abnormal Lab Results
01/26/25
21:49
MCHC 32.2 L g/dL
(33.0-37.0)
Sodium 134 L mmol/L
(135-145)
Glucose 106 H mg/dl
(70-99)
01/26/25 21:49
01/26/25 21:49
Vital Signs
Initial and Last Documented VS:
Initial Vital Signs
Temp Pulse Resp BP Pulse Ox
98.5 F 75 14 159/91 99
01/26/25 20:40 01/26/25 20:40 01/26/25 20:40 01/26/25 20:40 01/26/25 20:40
Last Documented Vital Signs
Temp Pulse Resp BP Pulse Ox
98.5 F 82 18 125/85 97
01/26/25 20:40 01/26/25 21:52 01/26/25 21:52 01/26/25 23:00 01/26/25 23:15
MDM/Problems Addressed
MDM/Problems Addressed:
34-year-old female presenting to the emergency department today with concerns of multiple symptoms after stopping her depression medication. Here on physical examination no significant acute findings patient well-appearing in no distress vital
signs normal labs unremarkable no evidence of any emergent pathology advised for close outpatient follow-up. Return precautions given.
*Pulse Oximetry
SaO2: 97
Patient hypoxic: no (97)
*Critical Care Note
Total Time (30-74mins, 75-104mins- exclusive of procedures): Not Applicable
ED Attending Note
-
Portions of this chart may have been created with voice recognition software.� Occasional wrong word or��sound alike� substitutions may have occurred due to the inherent limitations of voice recognition software.
Discharge Plan
Departure
Patient Disposition: Home (Routine Discharge)
Date of Disposition: 01/26/25
Time of Disposition: 23:37
Patient with high blood pressure during this ER visit?: No
Condition: Good
Covid-19: Not Applicable
Discharge Problem:
Swelling
Prescriptions:
No Action
mometasone [Nasonex] 17 GM spray,non-aerosol
17 gm NS DAILY
budesonide-formoterol [Symbicort] 1 PUFF HFA aerosol inhaler
2 puff inhalation R BID
montelukast 10 MG tablet
10 mg PO DAILY
azelastine [Optivar] 0.05 % drops
1 drp BOTH EYES PRN PRN (Reason: allergy eyes)
loratadine 10 MG tablet
10 mg PO DAILY Qty: 14 0RF
budesonide-formoterol [Symbicort] 160-4.5 mcg/actuation HFA aerosol inhaler
1 inh inhalation BID Qty: 10.2 0RF
alprazolam [Xanax] 0.5 mg Tablet
0.5 mg PO HS PRN (Reason: anxiety )
duloxetine [Cymbalta] 20 mg Capsule,Delayed Release(Dr/Ec)
20 mg PO DAILY
Referrals:
Michelle Paris PA-C [Family Provider, Family Practice]
Activity Restrictions/Additional Instructions:
Here you had a reassuring assessment. Please take Motrin 600 mg every 6 hours over the next week or so. Return for any worsening, new or concerning symptoms.
Interventions
Interventions:
*Risk Screen - Suicide Last Done: 01/26/25 20:36
*General Assessment Last Done: 01/26/25 20:36
*Neglect/Abuse Screening Last Done: 01/26/25 20:36
*ED- Fall Risk Assessment Last Done: 01/26/25 21:40
*ED COVID-19 Vaccine History Last Done: 01/26/25 21:40
*ED Influenza Vaccine History Last Done: 01/26/25 21:40
ED-Skin Assessment Last Done: 01/26/25 21:40
ED- Pulmonary Assessment Last Done: 01/26/25 21:40
ED-EENT Assessment Last Done: 01/26/25 21:40
Discharge Date and Time
Print Language: EQUATORIAL GUINEAN
== END 2025-01-26 23:46 | disposition home or self-care (01) ==
LOC: EMR 20:35
PROVIDERS: Physician Assistant; EMERGENCY PHYSICIAN Student in an Organized Health Care Education/Training Program; FAMILY PHYSICIAN Physician Assistant Medical
DX: M79.89 Other specified soft tissue disorders (principal); R07.9 Chest pain, unspecified; J45.909 Unspecified asthma, uncomplicated; E78.00 Pure hypercholesterolemia, unspecified
CPT/HCPCS: 99284; 96372; 80048; 84703; 85025; 93005

== ENCOUNTER 2025-02-02 20:05 | Emergency (ER) | payer OTHER, SELFPAY ==
[2025-02-02 20:15] VITALS: BP 158/89
[2025-02-02 20:41] LABS: Hematocrit 43.2 % (37.0-47.0); Hemoglobin 14.4 g/dL (12.0-16.0); Mean Corp Hgb Conc. 33.3 g/dL (33.0-37.0); Mean Corpuscular Volume 82.6 fL (81.0-99.0); Nucleated Red Blood Cells % 0 %; Platelet Count 247 10^3/uL (130-400); Red Cell Dist. Width 12.5 % (11.5-14.5)
[2025-02-02 20:54] LABS: HCG, Serum Qualitative Screen Negative
[2025-02-02 21:33] VITALS: BP 131/80
[2025-02-02 22:00] VITALS: BP 135/80
[2025-02-02 22:19] LABS: ALT (SGPT) 20 U/L (0-35); AST (SGOT) 21 U/L (14-36); Albumin 4.3 g/dl (3.5-5.0); Alkaline Phosphatase 45 U/L (38-126); Blood Urea Nitrogen 10 mg/dl (7-17); Calcium 10.0 mg/dl (8.4-10.2); Carbon Dioxide 28 mmol/L (22-30); Chloride 102 mmol/L (98-107); Glucose 122 mg/dl (70-99); Lipase 114 U/L (23-300); Potassium 3.8 mmol/L (3.5-5.1); Sodium 134 mmol/L (135-145); Total Protein 7.5 g/dl (6.3-8.2); eGFR > 60.00
--- NOTE | 2025-02-02 23:58 | ED.GENMED ---
History of Present Illness
General
Chief Complaint: Abdominal Pain
Time Seen by Provider: 02/02/25 21:04
History of Present Illness
History of Present Illness:
34-year-old female presents to the emergency department for evaluation of upper abdominal pain for the past 1 to 2 days associated with decreased appetite and nausea. Denies vomiting or diarrhea. She was seen here 1 week ago for bilateral jaw pain
and facial swelling which was felt to be self-limited and she was advised to take NSAIDs. She followed up with her primary care physician who put her on a course of steroids for possible mono however subsequent mono testing returned negative. She
wonders that whether this could be due to stopping desvenlafaxine. She denies night sweats or weight loss. Denies black or bloody stool. She reports continued bilateral jaw discomfort and difficulty swallowing
Past History
Past History
ED Past Medical History: Asthma, Hypercholesterolemia, Psychiatric (Depression) and Other (Morbid obesity, UTI, seasonal allergies)
ED Past Surgical History: Other ([place] teeth)
Social History
Tobacco: Non-smoker
Alcohol: Occasional
Personal:
Living: with family
Employment: Employed
Family History
Family History: Other (Noncontributory)
Review of Systems
Review of Systems
Allergies reviewed?: Yes
All Other Systems: ROS reviewed and negative except as documented in HPI and ROS
Phy Exam
Physical Exam
Physical Exam:
GEN: Well appearing, NAD, WDWN
HEENT: Oral mucosa moist, no scleral icterus, oropharynx clear with no erythema or exudates, no jaw motion crepitus. Thready tender adenopathy to the tonsillar space bilaterally, no pathologic adenopathy. No supraclavicular adenopathy.
Cardiac: Regular rate and rhythm, no murmur
Lung: No respiratory distress, no tachypnea
Abdomen: Soft, diffuse tenderness to all 4 quadrants, no rigidity
MSK: No gross deformity or injuries
Skin: Good color, no pallor or jaundice, no rashes
Neuro: AO x3, moves all extremities freely
Psych: Calm, cooperative
Course
Orders/Labs/Results
Orders:
Orders
02/02/25 20:18
Test Result ONCE
02/02/25 20:29
Complete Blood Count/With Diff Urgent
Comprehensive Metabolic Panel Urgent
HCG, Serum Qualitative Screen Urgent
Lipase Urgent
02/02/25 21:51
CT Abd/Pel (IV only)-DH only Urgent
Comment:
Reason For Exam: periumbilical pain
Abnormal Lab Results
02/02/25
20:29
Sodium 134 L mmol/L
(135-145)
Glucose 122 H mg/dl
(70-99)
02/02/25 20:29
02/02/25 20:29
Vital Signs
Initial and Last Documented VS:
Initial Vital Signs
Temp Pulse Resp BP Pulse Ox
98 F 89 18 158/89 99
02/02/25 20:15 02/02/25 20:15 02/02/25 20:15 02/02/25 20:15 02/02/25 20:15
Last Documented Vital Signs
Temp Pulse Resp BP Pulse Ox
98 F 75 20 135/80 99
02/02/25 20:15 02/02/25 22:30 02/02/25 22:30 02/02/25 22:00 02/03/25 00:01
MDM/Problems Addressed
MDM/Problems Addressed:
Because of the patient's adenopathy symptoms is not immediately clear, certainly they do not feel pathologic in any nature. She had negative outpatient mono testing. In regards to her abdominal pain given that she was treated with NSAIDs and
steroids recently this may be a gastritis and will recommend PPI and H2 lazara for symptomatic treatment
*Pulse Oximetry
SaO2: 99
Oxygen Mode of Delivery: Room air
Patient hypoxic: no
*Critical Care Note
Total Time (30-74mins, 75-104mins- exclusive of procedures): Not Applicable
ED Attending Note
-
Portions of this chart may have been created with voice recognition software.� Occasional wrong word or��sound alike� substitutions may have occurred due to the inherent limitations of voice recognition software.
Discharge Plan
Departure
Patient Disposition: Home (Routine Discharge)
Date of Disposition: 02/03/25
Time of Disposition: 00:01
Patient with high blood pressure during this ER visit?: No
Discharge Problem:
Gastritis
Instructions: Gastritis (DC)
Prescriptions:
New
pantoprazole 40 mg tablet,delayed release (DR/EC)
40 mg PO DAILY Qty: 14 0RF
famotidine 20 mg tablet
20 mg PO BID 7 Days Qty: 14 0RF
No Action
mometasone [Nasonex] 17 GM spray,non-aerosol
17 gm NS DAILY
budesonide-formoterol [Symbicort] 1 PUFF HFA aerosol inhaler
2 puff inhalation R BID
montelukast 10 MG tablet
10 mg PO DAILY
azelastine [Optivar] 0.05 % drops
1 drp BOTH EYES PRN PRN (Reason: allergy eyes)
loratadine 10 MG tablet
10 mg PO DAILY Qty: 14 0RF
budesonide-formoterol [Symbicort] 160-4.5 mcg/actuation HFA aerosol inhaler
1 inh inhalation BID Qty: 10.2 0RF
alprazolam [Xanax] 0.5 mg Tablet
0.5 mg PO HS PRN (Reason: anxiety )
duloxetine [Cymbalta] 20 mg Capsule,Delayed Release(Dr/Ec)
20 mg PO DAILY
Referrals:
Michelle Paris PA-C [Family Provider, Family Practice]
Interventions
Interventions:
*Risk Screen - Suicide Last Done: 02/02/25 20:17
*General Assessment Last Done: 02/02/25 20:17
*Neglect/Abuse Screening Last Done: 02/02/25 20:17
*ED- Fall Risk Assessment Last Done: 02/03/25 00:12
*ED COVID-19 Vaccine History Last Done: 02/02/25 20:17
*ED Influenza Vaccine History Last Done: 02/02/25 20:17
*Nursing Disposition Last Done: 02/03/25 00:12
BO-Qcolja-Iwjugcqxfv Assessment Last Done: 02/02/25 21:35
Discharge Date and Time
Discharge Date/Time: 02/03/25 00:12
Print Language: KHMER
== END 2025-02-03 00:12 | disposition home or self-care (01) ==
LOC: EMR 20:05
PROVIDERS: Student in an Organized Health Care Education/Training Program; EMERGENCY PHYSICIAN Emergency Medicine; FAMILY PHYSICIAN Physician Assistant Medical
DX: K29.70 Gastritis, unspecified, without bleeding (principal); J45.909 Unspecified asthma, uncomplicated; E78.00 Pure hypercholesterolemia, unspecified
CPT/HCPCS: 99284; 74177; 80053; 83690; 84703; 85025; Q9967